=== PATIENT | male | born 1970 | race Caucasian/White ===

== ENCOUNTER → 2017-05-13 | Outpatient (CLI) | payer OTHER ==
[~2017-05-13] MED LIST: LISI-461 PO; NIFE60TA57 PO; OMEG10007 PO
--- NOTE | 2017-05-13 11:40 | DIAGNOSTIC IMAGING REPORT ---
R KNEE 1 OR 2 VIEWS ROUTINE CLINICAL HISTORY: M25.561 pain COMPARISON: None. DISCUSSION: Moderate degenerative narrowing medial joint compartment. Mild degenerative changes lateral joint compartment as well as patellofemoral joint. No evidence for fracture or dislocation. No significant joint effusion. There is no evidence for soft tissue swelling. IMPRESSION: Moderate degenerative change primarily medial and patellofemoral joint compartments. No acute process. The above report was generated using voice recognition software. It may contain grammatical, syntax or spelling errors. Electronically signed by: Moshe Canas M.D. 05/13/2017 11:38 AM Dictated Date/Time: 05/13/2017 11:37 AM
== END | disposition home or self-care (01) ==
LOC: C.RAD1850 11:26
PROVIDERS: ATTEND Family Medicine
DX: M25.561 Pain in right knee (principal)

== ENCOUNTER → 2017-05-22 | Outpatient (CLI) | payer OTHER ==
--- NOTE | 2017-05-22 08:07 | DIAGNOSTIC IMAGING REPORT ---
R LOWER EXT JOINT WITHOUT CLINICAL HISTORY: RT KNEE PAIN, UNSPECIFIED INJURY, MUSCLE WEAKNESS pain. TECHNIQUE: MRI multi axial acquisition COMPARISON STUDY: None FINDINGS: Findings of generalized soft tissue edema about the knee. Small prepatellar slightly complex fluid collection and/or hematoma measuring 3 x 1 cm. Signal characteristics of the osseous structures indicate a mild contusion of the medial tibial plateau. Signal characteristics of all remaining osseous structures are unremarkable. Anterior and posterior cruciate ligaments are intact. He collateral ligaments are unremarkable. Patellofemoral joint is intact. Medial and lateral patellar retinaculum are intact. Evaluation of the menisci shows the lateral meniscus to be unremarkable in overall signal character and configuration. The medial meniscus demonstrates apical truncation of the mid medial meniscus. There is a small linear tear of the posterior horn medial meniscus extending to the meniscal apex. IMPRESSION: 1. Contusion medial tibial plateau. 2. Focal truncation apex mid medial meniscus associated with a linear hairline tear posterior horn medial meniscus. 3. All remaining components of the knee are unremarkable. 4. Generalized soft tissue edematous change about the knee with evidence for a small prepatellar hematoma The above report was generated using voice recognition software. It may contain grammatical, syntax or spelling errors. Electronically signed by: Moshe Canas M.D. 05/22/2017 8:05 AM Dictated Date/Time: 05/22/2017 7:51 AM
== END | disposition home or self-care (01) ==
LOC: C.MRI 06:52
PROVIDERS: ATTEND Family Medicine
DX: M25.561 Pain in right knee (principal); S80.01XA Contusion of right knee, initial encounter; M62.81 Muscle weakness (generalized)